=== PATIENT | male | born 1985 | race Caucasian/White ===

== ENCOUNTER → 2016-07-27 | Outpatient (CLI) | payer BC ==
[~2016-07-27] MED LIST: ADVIL200 MG PO; COLACE100 MG PO; DILAUDID 2MG(HYD2 MG PO; ECOTRIN325 MG PO; MIRALAX17 GM PO; NEURONTIN300 MG PO; PRILOSEC20 MG PO; TYLENOL EXTRA500 MG PO; VALIUM5 MG PO
== END | disposition disaster alternative care site (69) ==
LOC: GRAD 17:12
DX: M25.80 Other specified joint disorders, unspecified joint (principal); M89.38 Hypertrophy of bone, other site

== ENCOUNTER 2016-08-11 11:00 | Inpatient (IN) | payer BC ==
[~2016-08-11] VITALS: Ht 185.4 cm; Wt 142.3 kg
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
[~2016-08-11 11:00] MED LIST changes: -COLACE100 MG PO; -DILAUDID 2MG(HYD2 MG PO; -ECOTRIN325 MG PO; -MIRALAX17 GM PO; -NEURONTIN300 MG PO; -TYLENOL EXTRA500 MG PO; -VALIUM5 MG PO
[2016-08-31 13:04] LABS: HEMATOCRIT 30.4 % (37.0-53.0); HEMOGLOBIN 9.7 g/dL (12.0-17.0)
[2016-08-31 15:43] LABS: BICARBONATE 21.1 mmol/L (18.0-23.0); PCO2 39 mmHg (35-45); PO2 107 mmHg (80-90); POTASSIUM 4.6 mEq/L (3.7-5.1); SODIUM 139 mEq/L (135-145)
[2016-08-31 15:44] LABS: PCO2 41 mmHg (35-45)
[2016-08-31 15:45] LABS: BICARBONATE 20.2 mmol/L (18.0-23.0); PO2 78 mmHg (80-90); POTASSIUM 4.6 mEq/L (3.7-5.1); SODIUM 140 mEq/L (135-145)
--- NOTE | 2016-08-31 18:06 | NUR ---
Significant Event: From PACU at 1405. Dressing saturated upon arrival, Leo STERN changed. Moderate bloody drainage at this time. Ice to hip at all times. Patient C/O Pain to L) flank and R) hip, Dilaudid 2mg, Toradol, and Valium 5mg given. K-pad placed to L) flank. Room air. at bedside. Voids per urinal. CSM-some tingling to R) foot. Staed that he twisted wrong earlier and felt a pop in the R) hip, orders for bedrest and x-ray. Follow up:
--- NOTE | 2016-09-01 05:15 | NUR ---
Pt AOx3. VSS on RA. CSM intact. Mepilex dressing changed. Small shadowing on new dressing. Pt has the left flank pain from surgery. Pt refused aqua k pad and ice to back as it didn't help earlier. The pain improved as the night went on. Minimal hip pain. Pt stood at bedside had increased pain with standing.
--- NOTE | 2016-09-01 10:25 | NUR ---
Introduced self/role to patient and his Briseyda. They denied any barriers to going home or at home. Only DME he might need is a shower bench and she will just pick one up at [facility]. They are planning on discharge tomorrow. Had some billing questions from a previous procedure. Directed them to the billing office. Added my name to his marker board, will continue to follow.
--- NOTE | 2016-09-01 18:07 | NUR ---
Significant Event: Ambulates with one assist, walker and gaitbelt. Dressing with old marked drainage. Ice at all times. Voids without difficulty. CSM WNL. Radiation therapy to R) hip this afternoon. Dilaudid 2mg and Tylenol 1000mg last at 1707. Valium 5mg last at 1505. Plans to Dismiss to home tomorrow. Follow up:
--- NOTE | 2016-09-02 03:11 | NUR ---
Significant Event: PATIENT ALERT AND ORIENTED X 3. VSS. TAKING PO AND VOIDING WITHOUT DIFFICULTY. UP WITH 1 ASSIST/GB/WALKER. DRESSING TO RIGHT HIP HAS MODERATE AMOUNT OF SHADOW DRAINAGE - NO INCREASE THIS SHIFT. PAIN WELL CONTROLLED WITH DILAUDID LAST AT 0500, VALIUM LAST AT 0300. CSM'S TO RIGHT LE WNL. PLEASANT AND COOPERTIVE WITH CARES. PLANS D/C TO HOME TODAY. Follow up:
[2016-09-02 04:24] LABS: HEMATOCRIT 21.5 % (37.0-53.0); HEMOGLOBIN 6.8 g/dL (12.0-17.0)
[2016-09-02 14:54] LABS: HEMATOCRIT 26.6 % (37.0-53.0); HEMOGLOBIN 8.6 g/dL (12.0-17.0)
--- NOTE | 2016-09-02 15:15 | NUR ---
Significant Event: Alert and oriented X 3. Room air. SBP 110's and 130's. Hgb 6.8 this a.m. with 1 unit of blood infused. Hgb to be drawn again at 1500. Possible dissmissal if hgb stable. Up to bathroom SBA. Complaints of a 6/10 to left flank and hip 4/10. Tordal given X 1 at 1246. and Dilaudid last given at 0942. Patient now rating pain at a 4/10. Pleasant and cooperative with cares. Follow up:
[2016-09-02] MEDS ORDERED: TYLENOL EXTRA500 MG PO (18:28)
[2016-09-02] MEDS ORDERED: ECOTRIN325 MG PO (18:29)
[2016-09-02] MEDS ORDERED: COLACE100 MG PO (18:30)
[2016-09-02] MEDS ORDERED: NEURONTIN300 MG PO (18:31)
[2016-09-02] MEDS ORDERED: VALIUM5 MG PO (18:33)
[2016-09-02] MEDS ORDERED: MIRALAX17 GM PO (18:33)
[2016-09-02] MEDS ORDERED: DILAUDID 2MG(HYD2 MG PO (18:35)
--- NOTE | 2016-09-03 02:15 | NUR ---
Discharge Note: Patient and his given discharge instructions. Went over all of patient's discharge medications and explained what each medication was for and possible side effects, especially with the narcotics and ASA. Went over symtoms to call doctor on. Patient and his verbalized understanding. Patient's IV removed on day shift. Patient wheelchaired to waiting vehicle driven by his .
== END 2016-09-02 20:10 | disposition disaster alternative care site (69) | DRG 470 ==
LOC: G3N 08-31 06:08
PROVIDERS: ADMIT Orthopaedic Surgery
PROC: 0SR903A Replacement of Right Hip Joint with Ceramic Synthetic Substitute, Uncemented, Open Approach (ICD-10-PCS; principal; 2016-08-31)
DX: M16.51 Unilateral post-traumatic osteoarthritis, right hip (principal); Z68.41 Body mass index [BMI] 40.0-44.9, adult; M89.8X9 Other specified disorders of bone, unspecified site; V89.2XXS Person injured in unspecified motor-vehicle accident, traffic, sequela; K21.9 Gastro-esophageal reflux disease without esophagitis; E66.9 Obesity, unspecified
CPT/HCPCS: C1713; C1776; J0171; J0690; J0735; J1100; J1170; J1885; J2001; J2250; J2405; J2550; J2795; J3370; J7040; J7050; J7120; P9016; P9045

== ENCOUNTER → 2016-08-18 | Outpatient (CLI) | payer BC ==
[~2016-08-18] MED LIST changes: +COLACE100 MG PO; +DILAUDID 2MG(HYD2 MG PO; +ECOTRIN325 MG PO; +MIRALAX17 GM PO; +NEURONTIN300 MG PO; +TYLENOL EXTRA500 MG PO; +VALIUM5 MG PO
== END | disposition disaster alternative care site (69) ==
LOC: GNJRC 09:57
DX: Z01.812 Encounter for preprocedural laboratory examination (principal)